=== PATIENT | female | born 1960 | race African-American/Black ===

== ENCOUNTER 2020-01-07 13:40 | Outpatient (CLI) | payer OTHER, SELFPAY ==
--- NOTE | ~2020-01-07 | MM_ITS ---
EXAMINATION: MM diagnostic gita BI w tamir HISTORY: Nonfocal right breast pain TECHNIQUE: Craniocaudal, mediolateral, and mediolateral oblique 3-D tomosynthesis images of the breas ts were performed and synthetic 2-D images were generated. CAD analysis was submitted and interpreted . COMPARISON: 09/27/2017 BREAST PARENCHYMAL COMPOSITION: There are scattered areas of fibroglandular density. FINDINGS: There is unchanged focal asymmetry in the upper outer quadrant of the left breast. There is no evidence of suspicious mass, calcification, or architectural distortion in either breast to sugg est malignancy. There has been no suspicious interval change. No mammographic correlate is identifi ed for the patient's reported right breast pain. IMPRESSION: 1. No specific mammographic correlate is identified for the patient's right breast pain. Further eval uation at this time should be based on clinical assessment. Continued follow-up physical examination is recommended. 2. Recommend routine screening mammography in one year. BI-RADS Category 2: Benign finding(s). Reviewed, dictated and finalized at location A. ER AND PACKER IMPRESSION: 1. No specific mammographic correlate is identified for the patient's right liane ast pain. Further evaluation at this time should be based on clinical assessmen t. Continued follow-up physical examination is recommended. 2. Recommend routine screening mammography in one year. BI-RADS Category 2: Benign finding(s).
--- NOTE | ~2020-01-07 | US_ITS ---
EXAMINATION: US thyroid EXAM DATE: 01/07/2020 16:09 INDICATION: Multinodular goiter. STAT exam. TECHNIQUE: Multiple grayscale and Doppler images of the thyroid were obtained (by a technologist who performed the scan) and subsequently reviewed. Individual nodules may be reported using TI-RADS syst em as designated by the 2017 ACR White Paper TI-RADS committee. Comparison is made to prior examinati on from 09/27/2017. FINDINGS: Again there is multinodular goiter. The right thyroid lobe measures about 7 x 3.5 cm, the left measur ing about 6 x 2.5 cm. Largest right thyroid nodule was previously biopsied, measures 4.0 x 2.5 x 3.7 cm, stable or minimally increased in size. This was previously biopsied with benign results. Largest left thyroid nodule measures 2.1 x 2.1 x 1.6 cm, is unchanged. Several other sizable nodules. All of these have are category TR-4. IMPRESSION: 1. Multinodular goiter. Reviewed, dictated and finalized at location A. E SANDBLASTER IMPRESSION: 1. Multinodular goiter.
== END 2020-01-07 13:41 | disposition home or self-care (01) ==
PROVIDERS: PCP Internal Medicine; Visit Provider Emergency Medicine
DX: N64.4 Mastodynia (principal); E04.2 Nontoxic multinodular goiter
CPT/HCPCS: 76536; 77062; 77066; G0279

== ENCOUNTER 2020-01-13 15:07 | Emergency (ER) | payer OTHER, SELFPAY ==
--- NOTE | ~2020-01-13 | XR_ITS ---
EXAMINATION: XR chest 2V DATE: 01/13/2020 17:43 INDICATION: Right-sided chest pain TECHNIQUE: PA and lateral views of the chest are obtained. COMPARISON: 07/23/2017 FINDINGS: The lungs are free of acute opacities. There is no pleural effusion or pneumothorax. The ca rdiomediastinal silhouette is normal. There is moderate thoracic spondylosis. IMPRESSION: 1. No acute cardiopulmonary abnormality. Reviewed, dictated and finalized at location A. EKEEPING ASSOCIATE
[2020-01-13 16:56] VITALS: BP 174/79; PULSE 86; RESP 16; TEMP 37.3; O2SAT 100
--- NOTE | 2020-01-13 17:01 | ECG_ITS ---
Measurements Intervals [place] Rate: 83 P: 66 IA: 161 QRS: 72 QRSD: 83 T: 62 QT: 348 QTc: 410 Interpretive Statements SINUS RHYTHM NORMAL ECG Electronically Signed On 01-13-2020 20:05:21 RISK MANAGEMENT MANAGER by Kvng Peterson D.O.
[2020-01-13] MEDS: IBUPROFEN 400 MG TABLET 800 MG PO (17:39)
--- NOTE | 2020-01-13 18:24 | ED.GENADULT ---
HPI - General Adult General Chief complaint: Extremity Injury, Upper Stated complaint: pain in r chest/arm Time Seen by Provider: 01/13/20 17:13 History of Present Illness HPI narrative: Patient is a 59-year-old female who presents with right-sided chest pain for 3 weeks. Associated with coughing and tenderness with palpation. Its posterior to the breast on the upper aspect of the chest wall. She did obtain a mammogram that was unremarkable. She reports productive cough with this discomfort. She is tried no pain medication. Occasionally has some tingling down her right arm. Pain is worsened with coughing and movement of the upper extremity. No known alleviating factors other than placing her arm above her head. Related Data Allergies Allergy/AdvReac Type Severity Reaction Status Date / Time No Known Allergies Allergy Unverified 10/28/17 11:11 Review of Systems Review of Systems: All systems reviewed & are unremarkable except as noted in HPI and below Constitutional: Constitutional: Denies chills, Denies fever(s) and Denies weakness Cardiovascular: Cardiovascular: Reports chest pain and Denies rapid heart rate Respiratory: Respiratory: Reports cough, Denies dyspnea and Denies wheezing PMFSH Past Medical History Medical History (Updated 01/13/20 @ 18:31 by Catracho Ferguson MD) No pertinent past medical history Surgical History Surgical History (Updated 01/13/20 @ 18:26 by Catracho Ferguson MD) No pertinent past surgical history Social History Social History (Updated 01/13/20 @ 18:26 by Catracho Ferguson MD) Additional smoking assessment comments: Non-smoker Exam Narrative: Exam Narrative: GENERAL: Well-appearing, well-nourished, and in no acute distress. HEAD: Normocephalic, atraumatic. ENT: Mucous membranes moist. Neck: No midline tenderness of the neck or paraspinal/trapezius tenderness/spasm. CHEST: Clear to auscultation. No respiratory distress. Good air palpation right anterior chest wall. HEART: Regular rate and rhythm. Normal peripheral pulses. EXTREMITIES: Normal range of motion. No edema. NEURO: Alert and oriented x3. No focal neurologic deficit. Course Course Emergency Course: Patient informed of results. Pain improved with ibuprofen. Discharge home. Vital Signs Vital signs: Vital Signs Temperature 99.2 F 01/13/20 16:56 Pulse Rate 86 01/13/20 16:56 Respiratory Rate 16 02/12/20 16:56 Blood Pressure 174/79 H 01/13/20 16:56 Pulse Oximetry 100 01/13/20 16:56 Temperature 99.2 F 01/13/20 16:56 Pulse Rate 86 01/13/20 16:56 Respiratory Rate 16 01/13/20 16:56 Blood Pressure 174/79 H 01/13/20 16:56 Pulse Oximetry 100 01/13/20 16:56 Medical Decision Making Vital Signs Vital Signs: Vital Signs Temperature 99.2 F 01/13/20 16:56 Pulse Rate 86 01/13/20 16:56 Respiratory Rate 16 01/13/20 16:56 Blood Pressure 174/79 H 01/13/20 16:56 Pulse Oximetry 100 01/13/20 16:56 Temperature 99.2 F 01/13/20 16:56 Pulse Rate 86 01/13/20 16:56 Respiratory Rate 16 01/13/20 16:56 Blood Pressure 174/79 H 01/13/20 16:56 Pulse Oximetry 100 01/13/20 16:56 ECG Data EKG #1: ECG completion date: 01/13/20 ECG completion time: 17:02 EKG Interpretation: normal rate (83), sinus rhythm, no ectopy, no ST changes, normal QRS, normal QT and NL axis Discharge Plan Discharge Clinical Impression: Acute chest wall pain Patient Disposition: Home, Self-Care Condition: Stable Instructions: Chest Wall Pain (ED) Additional Instructions: Return to the ER if you have fever over 101F, you cannot keep down food/water, you lose consciousness, or you have other concerns. Prescriptions: New ibuprofen 800 mg tablet 800 mg PO TID Qty: 20 RF: 0 Follow-up/Referrals: Santosh Alvarenga MD [Physician] - 1 Week PHYSICIAN,[employer] SHE[employer]ER [Primary Care Provider] -
== END 2020-01-13 18:46 | disposition home or self-care (01) ==
PROVIDERS: Emergency Provider Emergency Medicine
DX: R07.89 Other chest pain (principal)
CPT/HCPCS: 71046; 93005; 99283; A9270

== ENCOUNTER 2021-01-31 08:46 | Outpatient (CLI) | payer OTHER, SELFPAY ==
--- NOTE | ~2021-01-31 | MM_ITS ---
EXAMINATION: MM screening gita BI w tamir HISTORY: Screening TECHNIQUE: Craniocaudal and mediolateral oblique 3-D tomosynthesis images were obtained and synthetic 2-D images were generated. CAD analysis was submitted and interpreted. COMPARISON: Comparison to multiple prior studies sequentially, with oldest reviewed study dated 09/02. BREAST PARENCHYMAL COMPOSITION: There are scattered areas of fibroglandular density. FINDINGS: Bilateral breast asymmetries are stable. There is no evidence of suspicious mass, calcifica tion, or architectural distortion to suggest malignancy in either breast. There has been no suspiciou s interval change. IMPRESSION: 1. No mammographic evidence of malignancy. 2. Recommend routine screening mammography in one year. BI-RADS Category 2: Benign finding(s). Reviewed, dictated and finalized at location A. LE COORDINATOR
== END 2021-01-31 08:47 | disposition home or self-care (01) ==
DX: Z12.31 Encounter for screening mammogram for malignant neoplasm of breast (principal)
CPT/HCPCS: 77063; 77067

== ENCOUNTER 2022-03-19 10:58 | Outpatient (CLI) | payer OTHER, SELFPAY ==
--- NOTE | ~2022-03-19 | MM_ITS ---
EXAMINATION: MM screening gita BI w tamir HISTORY: Screening mammogram TECHNIQUE: Craniocaudal and mediolateral oblique 3-D tomosynthesis images were obtained and synthetic 2-D images were generated. CAD analysis was submitted and interpreted. COMPARISON: 01/31/2021, 01/07/2020, 09/27/2017 bilateral screening mammogram examinations BREAST PARENCHYMAL COMPOSITION: There are scattered areas of fibroglandular density. FINDINGS: Occasional bilateral benign calcifications. There is no evidence of suspicious mass, calcif ication, or architectural distortion to suggest malignancy in either breast. There has been no suspic ious interval change. IMPRESSION: 1. No mammographic evidence of malignancy. 2. Recommend routine screening mammography in one year. BI-RADS Category 2: Benign finding(s). Reviewed, dictated and finalized at location A.
== END 2022-03-19 10:59 | disposition home or self-care (01) ==
LOC: ANHIMG 11:02
DX: Z12.31 Encounter for screening mammogram for malignant neoplasm of breast (principal)
CPT/HCPCS: 77063; 77067

== ENCOUNTER 2023-06-24 13:17 | Outpatient (CLI) | payer OTHER, SELFPAY ==
--- NOTE | ~2023-06-24 | MM_ITS ---
EXAMINATION: MM screening [facility] BI w tamir HISTORY: Screening mammogram TECHNIQUE: Craniocaudal and mediolateral oblique 3-D tomosynthesis images were obtained and synthetic 2-D images were generated. CAD analysis was submitted and interpreted. COMPARISON: 03/19/2022, 01/31/2021, 01/07/2020 BREAST PARENCHYMAL COMPOSITION: There are scattered areas of fibroglandular density. FINDINGS: No suspicious mass, calcification, or architectural distortion are identified in either liane ast to suggest malignancy. There has been no suspicious interval change. IMPRESSION: 1. No mammographic evidence of malignancy. 2. Recommend routine screening mammography in one year. BI-RADS Category 1: Negative Reviewed, dictated and finalized at location A.
== END 2023-06-24 13:18 | disposition home or self-care (01) ==
DX: Z12.31 Encounter for screening mammogram for malignant neoplasm of breast (principal)
CPT/HCPCS: 77063; 77067

== ENCOUNTER 2024-06-25 08:39 | Outpatient (CLI) | payer OTHER, SELFPAY ==
--- NOTE | ~2024-06-25 | MM_ITS ---
EXAMINATION: MM screening [facility] BI w tamir HISTORY: Screening TECHNIQUE: Craniocaudal and mediolateral oblique 3-D tomosynthesis images were obtained and synthetic 2-D images were generated. CAD analysis was submitted and interpreted. COMPARISON: Comparison to multiple prior studies sequentially, with oldest reviewed study dated 09/02. BREAST PARENCHYMAL COMPOSITION: Not dense: There are scattered areas of fibroglandular density. FINDINGS: The left breast is stable without evidence for malignancy. There is a cluster of indetermin ate calcifications in the lower inner quadrant of the right breast, middle third. IMPRESSION: 1. Cluster of indeterminate right breast calcifications. 2. Magnification views are recommended. BI-RADS Category 0: Incomplete: Needs additional imaging evaluation. Reviewed, dictated and finalized at location B.
== END 2024-06-25 08:40 | disposition home or self-care (01) ==
DX: Z12.31 Encounter for screening mammogram for malignant neoplasm of breast (principal); R92.8 Other abnormal and inconclusive findings on diagnostic imaging of breast
CPT/HCPCS: 77063; 77067

== ENCOUNTER 2024-08-15 12:37 | Emergency (ER) | payer OTHER, SELFPAY ==
[2024-08-15 12:49] VITALS: BP 139/62; PULSE 73; RESP 19; TEMP 36.6; O2SAT 100
--- NOTE | 2024-08-15 12:56 | ED.EXTPRO ---
HPI - Extremity Problem General Chief complaint: Extremity Problem,Nontraumatic Stated complaint: Left Shoulder Pain Time Seen by Provider: 08/15/24 12:56 Source: patient, RN notes reviewed and old records reviewed Mode of arrival: ambulatory Limitations: no limitations History of Present Illness HPI Narrative: Patient presents with complaints of left anterior shoulder pain. She reports this began a couple of days ago upon awakening. She denies any known injury or trauma. She has difficulty with range of motion to the affected joint. She has been taking Tylenol and ibuprofen with poor results. She voices no other concerns or complaints at this time. Related Data Home Medications Medication Instructions Recorded Confirmed albuterol sulfate 90 mcg/actuation 2 puff inhalation QID PRN 08/15/24 08/15/24 aerosol inhaler SOB/WHEEZING budesonide-formoterol HFA 160 2 puff inhalation BID 08/15/24 08/15/24 mcg-4.5 mcg/actuation aerosol inhaler (Symbicort) fluticasone 250 mcg-salmeterol 50 1 inh inhalation BID 08/15/24 08/15/24 mcg/dose blistr powdr for inhalation Allergies Allergy/AdvReac Type Severity Reaction Status Date / Time No Known Allergies Allergy Verified 08/15/24 12:51 Review of Systems Review of Systems: All systems reviewed & are unremarkable except as noted in HPI and below Constitutional: Constitutional: Reports as per HPI and Reports no additional constitutional complaints ENT: Reports system reviewed and no additional complaints, except as documented Cardiovascular: Cardiovascular: Reports no additional cardiovascular complaints Respiratory: Respiratory: Reports no additional respiratory complaints Gastrointestinal: Gastrointestinal: Reports no additional gastrointestinal complaints Musculoskeletal: Musculoskeletal: Reports no additional musculoskeletal complaints and Reports as per HPI [facility] Past Medical History Medical History (Updated 08/15/24 @ 13:04 by Mayelin Valenzuela APRN) No pertinent past medical history Surgical History Surgical History No pertinent past surgical history Social History Social History Additional smoking assessment comments: Non-smoker Comments At the time of my signature, I reviewed and agree with the nursing past medical, surgical, social, and family history. There is no relevant family history pertinent to the patient complaint. Exam Const: General: cooperative, no acute distress, alert and awake Orientation/consciousness: oriented to person, oriented to place and oriented to time HENMT: Head: normal to inspection Resp: Effort & Inspection: normal respiratory effort and able to speak in complete sentences Auscultation: clear to auscultation bilaterally, no crackles, no rales, no rhonchi and no wheezes Cardio: Palpation: normal PMI Rate: regular rate Rhythm: regular rhythm Heart sounds: S1 normal heart sound present and S2 normal heart sound present Neuro: General: oriented to person, oriented to place and oriented to time Cranial nerves: Yes CN's II-XII intact bilaterally Extrem: Left upper extremity: normal capillary refill and shoulder/upper arm tenderness of the proximal humerus and abnormal ROM pain with passive ROM in extension and in internal rotation; no deformity Psych: Appearance: grossly normal Thought process: Normal thought process present Insight: Good insight present (Psych) Judgement: Good judgement present (Psych) Course Course Level of Care: Express Care Visit Vital Signs Vital signs: Vital Signs Temperature 98 F 08/15/24 12:49 Pulse Rate 73 08/15/24 12:49 Respiratory Rate 19 08/15/24 12:49 Blood Pressure 139/62 08/15/24 12:49 Pulse Oximetry 100 08/15/24 12:49 Oxygen Delivery Room Air 08/15/24 12:49 Temperature 98 F 08/15/24 12:49 Pulse Rate 73 08/15/24 12:49 Respirat
== END 2024-08-15 13:15 | disposition home or self-care (01) ==
PROVIDERS: Emergency Provider Nurse Practitioner Family
DX: M25.512 Pain in left shoulder (principal)
CPT/HCPCS: 99213; G0463

== ENCOUNTER 2024-11-07 17:53 | Emergency (ER) | payer OTHER, SELFPAY ==
[2024-11-07 18:04] VITALS: BP 159/55; PULSE 87; RESP 18; TEMP 36.7; O2SAT 100
--- NOTE | 2024-11-07 18:04 | ED_ITS ---
HPI - Extremity Problem General Chief complaint: Neck Pain/Injury Stated complaint: Neck Pain Time Seen by Provider: 11/07/24 18:04 Source: patient, RN notes reviewed and old records reviewed Mode of arrival: ambulatory Limitations: no limitations History of Present Illness HPI Narrative: Patient presents with complaints of left-sided neck pain that has been present since awakening on Saturday morning. She denies any injury or trauma. She denies any fever, chills, sweats. She denies any headache. She reports that she believes she slept wrong. She has had shoulder pain in the left side without injury in the past. She does admit that she never followed up with primary care provider, nor has she may need attempt fine 1. She has been taking ibuprofen for her symptoms with minimal relief. She denies any numbness or tingling. She is observed ambulating with a steady gait. Related Data Allergies Allergy/AdvReac Type Severity Reaction Status Date / Time No Known Allergies Allergy Verified 11/07/24 18:00 Review of Systems Review of Systems: All systems reviewed & are unremarkable except as noted in HPI and below Constitutional: Constitutional: Reports no additional constitutional complaints ENT: Reports system reviewed and no additional complaints, except as documented Cardiovascular: Cardiovascular: Reports no additional cardiovascular complaints Respiratory: Respiratory: Reports no additional respiratory complaints Gastrointestinal: Gastrointestinal: Reports no additional gastrointestinal complaints Musculoskeletal: Musculoskeletal: Reports no additional musculoskeletal complaints, Reports as per HPI and Reports neck pain [facility] Past Medical History Medical History (Updated 11/07/24 @ 18:16 by Mayelin Valenzuela APRN) No pertinent past medical history Surgical History Surgical History No pertinent past surgical history Social History Social History Additional smoking assessment comments: Non-smoker Comments At the time of my signature, I reviewed and agree with the nursing past medical, surgical, social, and family history. There is no relevant family history pertinent to the patient complaint. Exam Const: General: cooperative, no acute distress, alert and awake Orientation/consciousness: oriented to person, oriented to place and oriented to time HENMT: Head: normal to inspection Neck: Neck: no meningeal signs and tender (left side, palpable muscle spasm) Resp: Effort & Inspection: normal respiratory effort and able to speak in com plete sentences Auscultation: clear to auscultation bilaterally, no crackles, no rales, no rhonchi and no wheezes Cardio: Palpation: normal PMI Rate: regular rate Rhythm: regular rhythm Heart sounds: S1 normal heart sound present and S2 normal heart sound present Neuro: General: oriented to person, oriented to place and oriented to time Cranial nerves: Yes CN's II-XII intact bilaterally Psych: Appearance: grossly normal Thought process: Normal thought process present Insight: Good insight present (Psych) Judgement: Good judgement present (Psych) Course Course Level of Care: Express Care Visit Vital Signs Vital signs: Reviewed MDM - Extremity (Nontraumatic) MDM Narrative Medical decision making narrative: Patient with nontraumatic neck pain, no infectious process. Treat as musculoskeletal pain. Patient courage to follow with primary care provider. Elevated blood pressure discussed. Discharge instructions reviewed with patient, as well as provided in writing per nursing staff. The instructions also include specific and strict return/GO TO THE ER as well as f/u information. All questions have been answered, and the patient deny any further questions with discharge and discharge plan. Some parts of this dictation were generated by voice recognition software and may contain typographical and/or grammatical inaccuracies. Differential Diagnosis Differential diagnosis: Likely other (Cervical radiculopathy, muscle spasm) Medical Records Attestation: I reviewed the patient's medical records. Discharge Plan Discharge Clinical Impression: Acute neck pain Patient Disposition: Home, Self-Care Condition: Stable Instructions: Antibiotic Form, Acute Neck Pain (ED) Additional Instructions: Take medications as prescribed. Your blood pressure is elevated today at 159/55. It is very important that you get a primary care provider to follow up with. Please go to the emergency department for any new or worse symptoms Patient Language: Salvadorean Prescriptions: New prednisone 50 mg tablet 50 mg PO DAILY Qty: 4 0RF cyclobenzaprine 10 mg tablet 10 mg PO TID PRN (Reason: muscle spasm) Qty: 14 0RF Follow-up/Referrals: PHYSICIAN,ELECTRONICS INSTALLER [Primary Care Provider] - Time of Disposition: 18:18
[2024-11-07] MEDS: predniSONE 20 MG TABLET 60 MG PO (18:21)
== END 2024-11-07 18:25 | disposition home or self-care (01) ==
PROVIDERS: Emergency Provider Nurse Practitioner Family
DX: M54.2 Cervicalgia (principal)
CPT/HCPCS: 99213; G0463; J7512

== ENCOUNTER 2025-02-22 12:03 | Outpatient (CLI) | payer OTHER, SELFPAY ==
--- NOTE | ~2025-02-22 | CT_ITS ---
EXAMINATION:CT chest high resolution wo nd DATE: 02/22/2025 12:17 INDICATION: Other forms of dyspnea. TECHNIQUE: Computed tomography (CT) of the chest was performed without intravenous contrast. Automate d exposure control and iterative reconstruction technique were employed. The dose-length product (DLP ) was 359.15 mGy-cm. COMPARISON: Chest CT 11/22/17 FINDINGS: There are patchy airspace and groundglass opacities in all lobes, worst in the superior fauzia gs. There is mild bronchiectasis in the lungs with an inferior predominance. No pleural effusion. The heart size is normal. No pericardial effusion. There is mild mucosal lymphadenopathy, likely reactiv e. The thyroid is enlarged, which is chronic. There is severe thoracic spondylosis. There is mild chr onic anterior wedging of multiple vertebral bodies. IMPRESSION: 1. Worsened diffuse lung disease, consistent with pneumonia. 2. Mild bronchiectasis in the lungs. 3. Mild mediastinal lymphadenopathy, likely reactive. Reviewed, dictated and finalized at location A.
== END 2025-02-22 12:04 | disposition home or self-care (01) ==
LOC: MICIMG 12:04
PROVIDERS: PCP Student in an Organized Health Care Education/Training Program; Visit Provider Student in an Organized Health Care Education/Training Program
DX: J98.4 Other disorders of lung (principal); J47.9 Bronchiectasis, uncomplicated; R59.0 Localized enlarged lymph nodes
CPT/HCPCS: 71250